=== PATIENT | male | born 1945 | race Caucasian/White ===

== ENCOUNTER 2021-01-19 18:51 | Emergency (ER) | payer MEDICARE ==
[2021-01-19] MEDS ORDERED: Rocuronium Bromide 10 MG/ML (10ML VIAL) IVP ONE (18:52)
[2021-01-19] MEDS ORDERED: Sodium Chloride 0.9% 1,000 ML BAG IV ONE (18:52)
[2021-01-19] MEDS ORDERED: Norepinephrine 4 MG/4 ML VIAL IVPB ONE (18:52)
[2021-01-19] MEDS ORDERED: Sodium Bicarb 50 MEQ/50 ML Abboject 8.4% SYRINGE IVP ONE (18:52)
[2021-01-19] MEDS ORDERED: Ketamine 50 MG/ML (10ML VIAL) ONE ×2 (18:58)
[2021-01-19] MEDS ORDERED: Rocuronium Bromide 10 MG/ML (10ML VIAL) ONE (18:59)
[2021-01-19 19:21] LABS: #Basophils 0.2 thou/uL (0.0-0.2); #Eosinphils 0.3 thou/uL (0.0-0.7); #Lymphocytes 3.4 thou/uL (1.20-3.40); #Monocytes 0.7 thou/uL (0.11-0.59); #Neutrophils 7.4 thou/uL (1.40-6.50); %Basophils 1.7 % (0.0-1.0); %Eosinophils 2.7 % (0.0-10.0); %Lymphocytes 28.3 % (21.0-51.0); %Monocytes 6.1 % (0.0-10.0); %Neutrophils 61.3 % (42.0-75.0); Mean Corpuscular HGB CONC 30.3 g/dL (32.0-36.0); Mean Corpuscular Hemoglobin 31.5 pg (27.0-31.0); Mean Platelet Volume 8.4 fL (7.4-10.4); Platelet Count 218 thou/uL (130-400); RBC Distribution Width 13.3 % (11.5-14.5); Red Blood Cell (RBC) Count 4.76 mill/uL (4.70-6.10)
[2021-01-19] MEDS ORDERED: Norepinephrine 4 MG/4 ML VIAL ONE ×2 (19:26)
[2021-01-19 19:35] LABS: ALT (SGPT) 36 U/L (8-55); AST (SGOT) 38 U/L (5-34); Alkaline Phosphatase 65 U/L (40-110); Anion Gap 30 mmol/L (10-20); BUN (Urea Nitrogen) 20 mg/dL (8.4-25.7); Bilirubin, Total 1.4 mg/dL (0.2-1.2); CK (CPK) 166 U/L (30-200); CKMB 3.1 ng/mL (0-6.6); Calc. Creatinine Clearance 0 mL/min (70-130); Calcium 9.4 mg/dL (7.8-10.44); Chloride 107 mmol/L (98-107); Globulin 2.9 g/dL (2.4-3.5); Glucose 207 mg/dL (83-110); Protein, Total 6.9 g/dL (5.8-8.1); Sodium 142 mmol/L (136-145)
[2021-01-19 19:49] LABS: Carbon Dioxide 9 mmol/L (23-31)
[2021-01-19 19:55] LABS: Bilirubin Negative (Negative); Blood, Urine Small (Negative); Clarity Clear (Clear); Glucose, Urine (Dipstick) Negative (Negative); Ketone, Urine Negative (Negative); Leukocyte Negative (Negative); Nitrite Negative (Negative); Protein, Urine (Dipstick) 100 mg/dL (Neg-Trace); Specific Gravity, Urine 1.025 (1.005-1.030); Urobilinogen 0.2 mg/dL (Less than 2); WBC/HPF 0-3 HPF (0-3); pH, Urine 6.5 (5.0-9.0)
[2021-01-19 19:56] LABS: Bacteria/HPF Rare-Few HPF (None Seen); Squamous Epithelial 0-3 HPF (0-3)
[2021-01-19 20:07] LABS: INR-International Normal Ratio 1.1; PTT 34.4 sec (22.9-36.1); Prothrombin Time 14.7 sec (12.0-14.7)
[2021-01-19] MEDS ORDERED: Azithromycin 500 MG VIAL ONE (20:24)
[2021-01-19] MEDS ORDERED: cefTRIAXone\\ROCEPHIN 2 GM VIAL ONE (20:25)
[2021-01-19] MEDS ORDERED: Sodium Chloride 0.9% 1,000 ML ONE (21:13)
[2021-01-19 22:25] LABS: SARS-CoV-2 NAA Rapid Test Not Detected (NotDetected)
== END 2021-01-19 21:08 | disposition short-term general hospital (02) ==
LOC: MADERS 18:51
DX: J96.90 Respiratory failure, unspecified, unspecified whether with hypoxia or hypercapnia (principal); E87.2 Acidosis; Z20.822 Contact with and (suspected) exposure to COVID-19; E78.5 Hyperlipidemia, unspecified; I10 Essential (primary) hypertension; F17.210 Nicotine dependence, cigarettes, uncomplicated
CPT/HCPCS: 0240U; 71045; 80053; 82550; 82553; 83605; 83880; 84484; 85025; 85610; 85730; 87040; 87086; 87149 ×2; 93005; 31500; 36415; 36556; 51702; 81003; 81015; 96361; 96365; 96368; 96374; 96375; J0456; J0696; J7050